=== PATIENT | female | born 1975 | race Caucasian/White ===

== ENCOUNTER 2017-11-13 09:23 | Emergency (ER) | payer OTHER, MEDICAID ==
[~2017-11-13] VITALS: Ht 175.2 cm; Wt 56.7 kg
[~2017-11-13 09:23] MED LIST: ACULAR 3 ML3 M1 OP; ATARAX25 MG PO; BACTRIM DS 8001 TA1 PO; BACTROBAN OINT22 GM PO; CLARITIN10 MG PO; CLOTRIMAZOLE AN1 CRE T; CORDROL20 MG PO; DYAZIDE 25 MG-31 CAP PO; ELIMITE 5%60 GM PO; FLONASE ALLERG9.9 ML NAS; GENTAK3 MG/ML OP; HYDROCODONE BIT1 T11 PO; LEVAQUIN750 MG PO; MARINOL5 MG PO; MEDROL DOSEPAK4 MG PO; MOTRIN800 MG PO; NKHM; NORVIR100 M1 PO; PREDNISONE; PREDNISONE10 MG PO; REYATAZ300 MG PO; ROBITUSSIN AC 110 ML PO; SEPTRA DS 800 M1 TAB PO; TRUVADA 200 MG-1 TA1 PO; ZANTAC150 MG PO; ZITHROMAX Z PA250 MG PO; ZITHROMAX600 MG PO; ZYRTEC10 M2 PO
[2017-11-13] MEDS ORDERED: CYCLOBENZAPRINE5 M3 PO (10:55)
[2017-11-13] MEDS ORDERED: LIDEX 0.05% CRE15 GM T (10:55)
[2017-11-13] MEDS ORDERED: Motrin,Rufen800 MG PO (10:55)
== END 2017-11-13 12:27 | disposition home or self-care (01) ==
LOC: ED 09:23
DX: S39.012A Strain of muscle, fascia and tendon of lower back, initial encounter (principal); R21 Rash and other nonspecific skin eruption; F17.200 Nicotine dependence, unspecified, uncomplicated; Z98.890 Other specified postprocedural states; Z79.899 Other long term (current) drug therapy; Z88.0 Allergy status to penicillin; X50.1XXA Overexertion from prolonged static or awkward postures, initial encounter; Y93.89 Activity, other specified; Y92.89 Other specified places as the place of occurrence of the external cause; Y99.9 Unspecified external cause status

== ENCOUNTER 2018-08-31 14:16 | Emergency (ER) | payer OTHER, MEDICAID ==
[~2018-08-31] VITALS: Wt 49.9 kg
--- NOTE | ~2018-08-31 | EKG ---
[place], [place] ELECTROCARDIOGRAM REPORT NAME: FILIPE BRENNAN UNIT #: [id number] ROOM: DOCTOR: ADAM DRAFT REPORT BIRTHDATE: [birth year] [facility] Test Date: 2018-08-31 Test Time: 14:42:53 Pat Name: FILIPE BRENNAN Department: Room: Gender: F Tankerman: Michelle Rios : 1975 Requested By: RAOUL CANTU PA-C Order Number: [id number] Reading MD: Vinh Appiah MD Measurements Intervals [place] Rate: 107 P: 84 ID: [id number] QRS: 158 QRSD: 106 T: 69 QT: 332 QTc: 443 Interpretive Statements Sinus tachycardia Nonspecific ST T changes Electronically Signed On 09-01-2018 8:00:05 PDT by Vinh Appiah MD CM:EKGRPT:ELECTROCARDIOGRAM REPORT [id number] RAOUL CANTU PA-C EPIPHJIAN DRAFT REPORT RAOUL CANTU PA-C
[~2018-08-31 14:16] MED LIST changes: +CYCLOBENZAPRINE5 M3 PO; +LIDEX 0.05% CRE15 GM T; +Motrin,Rufen800 MG PO
[2018-08-31 14:53] LABS: BASO # 0.1 10*3/uL (0.0-0.1); BASO % 0.4 % (0.0-1.0); EOS % 0.1 % (1.0-4.0); HEMOGLOBIN 13.5 g/dl (12.0-16.0); LYMPH # 0.7 10*3/uL (1.3-4.4); LYMPH % 4.9 % (27.0-41.0); MEAN CORPUSCULAR HGB 30.6 pg (27.0-31.0); MEAN CORPUSCULAR HGB CONC 32.9 g/dl (33.0-37.0); MEAN PLATELET VOLUME 10.2 fl (9.6-12.3); MONO # 0.8 10*3/uL (0.1-1.0); MONO % 5.5 % (3.0-9.0); NEUT # 13.3 10*3/uL (2.3-7.9); NEUT % 88.8 % (47.0-73.0); PLATELET COUNT AUTOMATED 212 10*3/uL (130-400); RED BLOOD COUNT 4.41 10*6/uL (4.10-5.10); RED CELL DISTRI WIDTH 12.7 % (0-14.5)
[2018-08-31 15:01] LABS: INTERNATIONAL NORM RATIO 1.2 (2.0-3.5)
[2018-08-31 15:11] LABS: ALBUMIN 3.1 gm/dl (3.1-4.5); ALKALINE PHOSPHATASE 65 U/L (45-117); BUN 12 mg/dl (7-24); CHLORIDE 102 mmol/L (98-107); CREATININE 1.93 mg/dL (0.55-1.02); LIPASE 72 U/L (73-393); POTASSIUM 4.1 mmol/L (3.5-5.1); SGOT/AST 26 IU/L (3-35); SGPT/ALT 28 U/L (12-78); SODIUM 136 mmol/L (136-145); TOTAL PROTEIN 6.8 gm/dL (6.4-8.2)
[2018-08-31 15:15] LABS: TROPONIN I < 0.015 ng/ml (<0.045)
[2018-08-31 15:50] LABS: BILIRUBIN NEGATIVE (NEGATIVE); BLOOD TRACE-LYSED (NEGATIVE); CLARITY CLEAR (CLEAR); COLOR YELLOW (YELLOW); GLUCOSE NEGATIVE (NEGATIVE); KETONE NEGATIVE (NEGATIVE); LEUKO ESTERASE 2+ (NEGATIVE); NITRITE NEGATIVE (NEGATIVE); PH 6.5 (5.0-9.0); SPECIFIC GRAVITY <= 1.005 (1.005-1.030); UROBILINOGEN 0.2 E.U./dl (0.2-1.0)
[2018-08-31 16:01] LABS: URINE AMPHETAMINES < 1000 (1000ng/ml); URINE BARBITURATES < 200 (200ng/ml); URINE BENZODIAZEPINES < 200 (200ng/ml); URINE CANNABINOIDS (THC) > 50 (50ng/ml); URINE COCAINE > 300 (300ng/ml); URINE METHADONE < 300 (300ng/ml); URINE OPIATES < 300 (300ng/ml); URINE PHENCYCLIDINE < 25 (25ng/ml)
[2018-08-31 16:12] LABS: BACTERIA TRACE; RBC 0-2 rbc/hpf (0-2); WBC TNTC wbc/hpf (0-5)
== END 2018-08-31 18:39 | disposition short-term general hospital (02) ==
LOC: ED 14:16
PROVIDERS: Physician Assistant
DX: A41.9 Sepsis, unspecified organism (principal); N17.9 Acute kidney failure, unspecified; N20.1 Calculus of ureter; N39.0 Urinary tract infection, site not specified; Z88.0 Allergy status to penicillin; Z79.899 Other long term (current) drug therapy

== ENCOUNTER → 2018-09-08 | Outpatient (CLI) | payer OTHER, MEDICAID | END | disposition home or self-care (01) | LOC: RAD 16:03 | DX: N20.0 Calculus of kidney (principal); R31.9 Hematuria, unspecified ==

== ENCOUNTER 2021-11-09 17:13 | Emergency (ER) | payer OTHER, MEDICAID ==
[~2021-11-09] VITALS: Ht 175.2 cm; Wt 68.0 kg
[2021-11-09 17:33] LABS: BASO # 0.1 10*3/uL (0.0-0.1); BASO % 1.1 % (0.0-1.0); EOS # 0.2 10*3/uL (0.0-0.4); EOS % 2.9 % (1.0-4.0); HEMATOCRIT 45.2 % (37.0-47.0); LYMPH # 2.4 10*3/uL (1.3-4.4); LYMPH % 31.7 % (27.0-41.0); MEAN CELL VOLUME 95.4 fl (81.0-99.0); MEAN CORPUSCULAR HGB CONC 32.5 g/dl (33.0-37.0); MEAN PLATELET VOLUME 10.2 fl (9.6-12.3); MONO # 0.7 10*3/uL (0.1-1.0); MONO % 9.6 % (3.0-9.0); NEUT # 4.1 10*3/uL (2.3-7.9); NEUT % 54.4 % (47.0-73.0); PLATELET COUNT AUTOMATED 271 10*3/uL (130-400); RED BLOOD COUNT 4.74 10*6/uL (4.10-5.10); RED CELL DISTRI WIDTH 11.8 % (0-14.5); WHITE BLOOD COUNT 7.5 10*3/uL (4.8-10.8)
[2021-11-09 17:44] LABS: ACT PARTIAL THROMBO TIME 27.8 SECONDS (20.0-32.1)
[2021-11-09 17:49] LABS: ALBUMIN 3.4 gm/dl (3.1-4.5); CREATININE 1.25 mg/dL (0.55-1.02); POTASSIUM 3.9 mmol/L (3.5-5.1); TOTAL PROTEIN 7.5 gm/dL (6.4-8.2)
== END 2021-11-09 19:13 | disposition home or self-care (01) ==
LOC: ED 17:13
PROVIDERS: Emergency Medicine
DX: R07.9 Chest pain, unspecified (principal); Z88.0 Allergy status to penicillin; Z79.899 Other long term (current) drug therapy